=== PATIENT | female | born 1945 | race African-American/Black ===

== ENCOUNTER 2017-12-30 06:10 | Day surgery (SDC) | payer MEDICARE, OTHER ==
[2017-12-29 16:32] VITALS: BMI 25.2
--- NOTE | 2017-12-30 05:04 | HP ---
SHORT STAY HISTORY AND PHYSICAL DATE OF ADMISSION: 12/30/2017 HISTORY OF PRESENT ILLNESS: This is a 72-year-old female referred to me for colonoscopy for colon ca ncer screening. The patient has no specific GI symptoms. There is no family history of colon cancer . ALLERGIES: None. SOCIAL HISTORY: Patient is a former smoker. She quit smoking more than 15 years ago. No alcohol in take. MEDICAL ILLNESSES: 1. Hypertension. 2. Hyperlipidemia. 3. Hypothyroidism. 4. Hysterectomy. 5. Appendectomy. PHYSICAL EXAMINATION: VITAL SIGNS: Pulse is 73, blood pressure 140/70. HEENT: Conjunctivae clear. CARDIOVASCULAR SYSTEM: First and second heart sounds normal. LUNGS: Clear to auscultation. ABDOMEN: Soft. No organomegaly. No tenderness. No masses. ADMITTING DIAGNOSIS: A 72-year-old female comes for a colonoscopy for colon cancer screening.
--- NOTE | 2017-12-30 12:07 | OP ---
DATE OF SURGERY: 12/30/2017 OPERATIVE PROCEDURE: Colonoscopy with polypectomy with biopsy forceps. PREOPERATIVE DIAGNOSIS: This is a 72-year-old female undergoing colonoscopy for colon [facility] er screening. POSTOPERATIVE DIAGNOSES: 1. Small sessile ascending colon polyp. 2. Mild sigmoid diverticular disease. 3. Very tortuous and redundant colon. PROCEDURE IN DETAIL: The patient was placed on her left lateral position and was given sedation by [facility]. A rectal exam was done before the scope was advanced into the rectum. No lesi ons were felt on rectal exam. A Pentax video colonoscope was introduced into the rectum and advanced all the way into the cecum. The prep was good. The mucosa appears normal. The appendical opening, ileocecal valve, cecum, no pathology seen. Withdrawal of scope in the cecum, ascending colon showed a sessile polyp. The polyp was removed with biopsy forceps completely. The hepatic flexure, transv erse colon, splenic flexure, and descending colon, no pathology seen. Retroflexion of scope in the r ectum showed no pathology. DISCHARGE PLANNING: This is a 72-year-old female, referred to me by Dr. Brooks sequeira or colonoscopy for colon cancer screening. The patient underwent colonoscopy, polypectomy with biops y forceps. DISCHARGE RECOMMENDATIONS: 1. The patient advised to call me if she develops abdominal pain, hematochezia. 2. In the absence of any of those symptoms, she is to come back to me next week.
[2017-12-30] MEDS ORDERED: PROPOFOL 200 MG/20 ML VIAL ONE (14:49)
== END 2017-12-30 09:20 | disposition home or self-care (01) ==
LOC: SDC 06:10
PROVIDERS: ATTEND Internal Medicine Gastroenterology
PROC: 0DBK8ZX Excision of Ascending Colon, Via Natural or Artificial Opening Endoscopic, Diagnostic (ICD-10-PCS; principal; 2017-12-30)
DX: Z12.11 Encounter for screening for malignant neoplasm of colon (principal); K63.5 Polyp of colon; K57.30 Diverticulosis of large intestine without perforation or abscess without bleeding; K63.89 Other specified diseases of intestine; I10 Essential (primary) hypertension; E78.5 Hyperlipidemia, unspecified; E03.9 Hypothyroidism, unspecified; Z87.891 Personal history of nicotine dependence; Z79.899 Other long term (current) drug therapy
CPT/HCPCS: 88305; J2704